=== PATIENT | female | born 1930 | race Caucasian/White ===

== ENCOUNTER → 2019-10-23 | Outpatient (CLI) | payer MEDICARE ==
[2013-07-18 14:15] VITALS: BP 143/50
[~2019-10-23] MED LIST: ASPI-482 PO; ATOR10TA PO; CALC-98 PO; FERR325T14 PO; FISH1CAP PO; MELA1TAB13 PO; MULT-658 PO; OMEP20CA5 PO; VALS160T3 PO; WARF4TAB64 PO
--- NOTE | 2019-10-23 15:02 | RAD ---
DATE: 10/23/2019 1:32 PM EXAM: MAMMO BREANA DIAG BILAT HISTORY: 89-year-old woman with history of left lumpectomy presents for imaging evaluation left breast pain for 3 to 4 weeks. COMPARISON: 01/07/2013 Bilateral CC and MLO views of the breasts were performed. Bilateral breast tomosynthesis was performed in CC and MLO projections. FINDINGS: Breast Density: SCATTERED The breast parenchyma shows scattered fibroglandular densities. Breast parenchyma level B Stable benign surgical scar in the superolateral left breast. No suspicious masses, microcalcifications or architectural distortion is present to suggest malignancy in either breast. The visualized axillae are unremarkable. IMPRESSION: No mammographic evidence of malignancy. BI-RADS CATEGORY: 2 BENIGN FINDING(S) RECOMMENDED FOLLOW-UP: 12M 12 MONTH FOLLOW-UP Annual screening mammography is recommended, unless clinically indicated sooner based on symptoms or change in physical exam. PQRS compliance statement: Patient information was entered into a reminder system with a target due date for the next mammogram. Mammography is a sensitive method for finding small breast cancers, but it does not detect them all and is not a substitute for careful clinical examination. A negative mammogram does not negate a clinically suspicious finding and should not result in delay in biopsying a clinically suspicious abnormality. "Our facility is accredited by the [employer] Mammography [employer]."
== END | disposition home or self-care (01) ==
LOC: MAMMO 13:16
PROVIDERS: ATTEND Family Medicine
DX: R92.2 Inconclusive mammogram (principal); N64.4 Mastodynia
CPT/HCPCS: 77066; G0279; 77062

== ENCOUNTER → 2020-10-09 | Outpatient (CLI) | payer MEDICARE ==
[2013-07-18 14:15] VITALS: BP 143/50
--- NOTE | 2020-10-09 14:06 | KCIC ---
Bone Densitometry History: Asymmetric menopause. Findings: Bone Densitometry was performed with dual photon absorption of the lumbar spine and right distal fore arm. The hips were not included in the analysis due to bilateral hip prostheses. Lumbar Spine: Bone density is 1.141 g/cm2 for L1-L4. T-score is 0.9. Right distal forearm: Bone density is 0.411 g/cm2. T-score is -3.0. 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 Normal bone mineral density in the lumbar spine. World Health Organization definition of osteoporosis and osteopenia for women: normal equal s T score at or above -1.0 standard deviations; osteopenia equals T score between -1.0 and -2.5 stand renetta deviations; osteoporosis equals T score at or below -2.5 standard deviations. Electronically signed by: Meera Garcia MD (10/09/2020 2:04 PM) [id number]
== END ==
LOC: KCIC DEXA 13:05
PROVIDERS: ATTEND Family Medicine
DX: M81.0 Age-related osteoporosis without current pathological fracture (principal); Z78.0 Asymptomatic menopausal state
CPT/HCPCS: 77080; 77081